=== PATIENT | male | born 1945 ===

== ENCOUNTER 2024-08-28 07:21 | Emergency (ER) | payer MEDICARE, SELFPAY ==
--- OUTSIDE RECORDS SUMMARY | 2024-08-28 07:23 | XMS_ITS | Clinical Summary ---
Author Organization [employer] [facility] [employer] Address [place], [place] [address] Care Team Providers Care Aluminum Container Tester Name Role Phone Amy Ding Primary Care Provider [phone] Allergies No known active allergies Medications gabapentin (NEURONTIN) 300 mg capsuleIndication s:DDD (degenerative disc disease), cervical,Cervical radiculopathy,For aminal stenosis of cervical region Take 1 Capsule (300 mg) by mouth at bedtime. 90 Capsule 3 024 Active tiZANidine (ZANAFLEX) 4 mg tabletIndications :Cervical myofascial pain syndrome Take 0.5-1 Tablets (2-4 mg) by mouth every 8 hours if needed for Muscle Spasm. 36 Tablet 3 024 Active amLODIPine (NORVASC) 5 mg tabletIndications :HTN (hypertension) Take 1 Tablet (5 mg) by mouth once daily. 90 Tablet 3 025 Active atorvastatin (LIPITOR) 20 mg tabletIndications :Mixed hyperlipidemia Take 1 Tablet (20 mg) by mouth at bedtime. 90 Tablet 3 025 Active hydroCHLOROthiazi de 25 mg tabletIndications :HTN (hypertension) Take 1 Tablet (25 mg) by mouth once daily. 90 Tablet 3 025 Active losartan (COZAAR) 100 mg tabletIndications :HTN (hypertension) Take 1 Tablet (100 mg) by mouth once daily. 90 Tablet 3 025 Active carbamide peroxide (DEBROX) 6.5 % otic solutionIndicatio ns:Impacted cerumen of right ear Place 5 Drops into right ear two times daily. 15 mL 1 025 Active ammonium lactate 12 % creamIndications: Cracked skin on feet APPLY TOPICALLY TO AFFECTED AREA(S) NEEDED FOR DRY SKIN. 385 g 2 025 Active carbamide peroxide (DEBROX) 6.5 % otic solutionIndicatio ns:Impacted cerumen of right ear Place 5 Drops into right ear two times daily. 15 mL 023 2024 Discontinued(R eorder (E-cancel not sent)) atorvastatin (LIPITOR) 20 mg tabletIndications :Hyperlipidemia, unspecified hyperlipidemia type TAKE ONE TABLET BY MOUTH AT BEDTIME . 90 Tablet 3 024 2024 Discontinued amLODIPine (NORVASC) 5 mg tabletIndications :HTN (hypertension) Take 1 Tablet (5 mg) by mouth once daily. 90 Tablet 3 024 2024 Discontinued(R eorder (E-cancel not sent)) hydroCHLOROthiazi de (HCTZ) 25 mg tabletIndications :HTN (hypertension) Take 1 Tablet (25 mg) by mouth once daily. 90 Tablet 3 024 2024 Discontinued(R eorder (E-cancel not sent)) losartan (COZAAR) 100 mg tabletIndications :HTN (hypertension) Take 1 Tablet (100 mg) by mouth once daily. 90 Tablet 3 024 2024 Discontinued(R eorder (E-cancel not sent)) polyethylene glycol-electrolyt e (GOLYTELY) 236-22.74-6.74 -5.86 gram suspensionIndicat ions:Adenomatous polyp of colon, unspecified part of colon Drink 2 liters the day before colonoscopy and 2 liters 6 hours before colonoscopy appointment 4000 mL 024 2024 Discontinued(* Med complete/Regim en complete/Level of care change) ammonium lactate 12 % creamIndications: Cracked skin on feet APPLY TOPICALLY TO AFFECTED AREA(S) NEEDED FOR DRY SKIN 385 g 2 024 2024 Discontinued(R eorder (E-cancel not sent)) tiZANidine (ZANAFLEX) 4 mg tabletIndications :Cervical myofascial pain syndrome Take 0.5-1 Tablets (2-4 mg) by mouth every 8 hours if needed for Muscle Spasm. 24 Tablet 1 024 2023 Discontinued(R eorder (E-cancel not sent)) atorvastatin (LIPITOR) 20 mg tabletIndications :Hyperlipidemia, unspecified hyperlipidemia type TAKE ONE TABLET BY MOUTH NIGHTLY AT BEDTIME 90 Tablet 1 025 2024 Discontinued(R eorder (E-cancel not sent)) Active Problems Problem Noted Date Diagnosed Date Mixed hyperlipidemia 08/26/2024 DDD (degenerative disc disease), cervical 2024 Mild cognitive impairment 08/26/2024 Sensorineural hearing loss, bilateral 01/02/2020 Adenomatous colon polyp 01/12/2018 Overview (05/16/2024): Colonoscopy 12/2017 polyps, repeat in 3 years Colonoscopy 02/2021 multiple TA, repeat in 3 years Colonoscopy 04/2024 5-TA, repeat in 3 years H/O: upper GI bleed 05/08/2017 Overview (05/08/2017): [place] due to aspirin use - 02/2014 HTN (hypertension) 04/21/2017 Lumbar disc herniation 04/21/2017 Overview (04/21/2017): L4-5. MRI 04/05/17. Resolved Problems Problem Noted Date Diagnosed Date Resolved Date PMR (polymyalgia rheumatica) 11/25/2022 08/18/2023 Overview (11/25/2022): August 2022 Encounters Date Type Department Care Team Description 08/26/2024 8:15 AM NOVELTY CHAIN MAKER Office Visit [facility] [address] [place] [address] Amy Ding PA Medicare ANNUAL (subsequent) Visit 08/26/2024 Travel 2024 11:00 AM NOVELTY CHAIN MAKER Procedure Only [facility] [address] [facility] [place] [address] Ovi Gupta L Ac Acupuncture 2024 Travel 08/10/2024 Refill [facility] [address] [place] [address] Amy Ding PA Refill Request (Atorvastatin) 07/30/2024 11:00 AM NOVELTY CHAIN MAKER Procedure Only [facility] [address] [place] [address] Ovi Gupta L Ac Acupuncture 07/30/2024 Travel 07/30/2024 Telephone [facility] [place] [place] [address] Osmin Contreras MD OTHER 07/09/2024 11:00 AM NOVELTY CHAIN MAKER Procedure Only [facility] [place] [address] Ovi Gupta L Ac Acupuncture 07/09/2024 Travel 07/04/2024 2:20 PM NOVELTY CHAIN MAKER Office Visit [facility] [place] [facility] [place] [address] Osmin Contreras MD Musculoskeletal Problem (Follow up neck, shoulders and low back pain ) 07/04/2024 Travel 06/18/2024 8:30 AM NOVELTY CHAIN MAKER Procedure Only [facility] [place] [address] Ovi Gupta L Ac Acupuncture 06/18/2024 Travel 06/07/2024 Refill [facility] [facility] [place] [address] Amy Ding PA Refill Request (Ammonium Lactate) 05/29/2024 8:30 AM CDT Procedure Only [facility] [facility] [place] [address] Ovi Gupta L Ac Acupuncture 05/29/2024 Travel from Last 3 Months Immunizations Name Administration Dates Next Due COVID-19 VACCINE SPIKEVAX (M ODERNA 50MCG/0.5ML) 12YO+ PFS 05/26/2023 COVID-19 vaccine (Moderna 100mcg/0.5mL) PF, MDV 01/25/2022,07/15/2021,10/07/2020,09/09 COVID-19 vaccine (Moderna 50 mcg/0.5mL) 12YO+ BIVALENT PF, MDV 06/14/2022 Influenza, High-dose Inactivated 04/29/2019 Influenza, High-dose Quadriv alent Inactivated 04/25/2023,04/24/2021,04/10/2020 Influenza, Inactivated AIIV4 (Age 65+ Years) Preserv Free 05/12/2022 Influenza, Inactivated IIV3 (Age 65+ Years) Preserv Free 04/29/2024,05/02/2018 Pneumococcal Poly,23-Valent (Pneumovax) 05/02/2018 Pneumococcal conj 13-Valent (Prevnar 13) 03/16/2017 RSV, Recombinant ADJ Reconst ituted (Arexvy 120MCG/0.5mL) 09/05/2023 Td (Age >=7 Years) 08/14/2011 Tdap 06/14/2022 Zoster (Shingrix-RZV, recombinant) 08/10/2018, Social History Tobacco Use Types Packs/Day Years Used Date Smoking Tobacco: Former Smokeless Tobacco: Never Tobacco Cessation:Counseling Given: Yes Alcohol Use Standard Drinks/Week Comments No 0 (1 standard drink = 0.6 oz pur e alcohol) PHQ-2 Answer Date Recorded PHQ-2 TOTAL SCORE 0 08/26/2024 Social Connections Answer Date Recorded Do you often feel lonely or isolated from those around you? 0 02/27/2024 Financial Resource Strain Answer Date R ecorded Difficulty of Paying Living Expenses 3 02/27/2024 Difficulty of Paying Living Expenses Not on file 02/27/2024 Food Insecurity Answer Date Recorded Do you worry your food will run out before you are able to buy more? 1 02/27/2024 Transportation Needs Answer Date Record ed Does lack of transportation keep you from medica l appointments? 1 02/27/2024 Does lack of transportation keep you from work, meetings or getting things that you need? 1 02/27/2024 Housing Stability Answer Date Recorded What is your housing situation today? 1 02/27/2024 Utilities Answer Date Recorded Do you have trouble paying f or utilities (for example, heat, electricity, water, phone)? 1 02/27/2024 Sex and Gender Information Value Date Recorded Sex Assigned at Not on file Legal Sex Male 2:10 PM CDT Gender Identity Not on file Sexual Orientation Not on file Obstetrics History Last Filed Vital Signs Vital Sign Reading Time Taken Comments Blood Pressure 132/76 08/26/2024 8:09 AM NOVELTY CHAIN MAKER Pulse 83 08/26/2024 8:09 AM NOVELTY CHAIN MAKER Temperature 36.4 C (97.6 F) 07/04/2024 2:23 PM NOVELTY CHAIN MAKER Respiratory Rate 20 11/09/2020 12:11 PM CDT Oxygen Saturation 98% 08/26/2024 8:09 AM NOVELTY CHAIN MAKER Inhaled Oxygen Concentration - - Weight 90.3 kg (199 lb) 08/26/2024 8:09 AM NOVELTY CHAIN MAKER Height 166.4 cm (5' 5.5) 08/26/2024 8:09 AM NOVELTY CHAIN MAKER Body Mass Index 32.61 08/26/2024 8:09 AM NOVELTY CHAIN MAKER Plan of Treatment Upcoming Encounters Date Type Department Care Team (Late st Contact Info) Description 09/10/2024 9:00 AM NOVELTY CHAIN MAKER Procedure Only [facility] [address] [place] [address] Ovi Gupta L Ac [address] [place] [address] 09/30/2024 9:20 AM NOVELTY CHAIN MAKER Office Visit [facility] [address] [place] [address] Osmin Contreras MD [address] [place] [address] 10/08/2024 9:00 AM NOVELTY CHAIN MAKER Procedure Only [facility] [address] [place] [address] Ovi Gupta L Ac [address] [place] [address] 10/29/2024 10:00 AM CDT Procedure Only [facility] [address] [place] [address] Ovi Gupta L [address] [place] [address] Scheduled Procedures Name Priority Associated Diagnoses Date/Ti me SURGICAL PROCEDURE (TYPE PROCEDURE DESCRIPTION BELOW) Adenomatous polyp of colon, unspecified part of colon Health Maintenance Due Date Last Done Comments BMI (ht and wt on same day) for age 18+ 08/26/2025 08/26/2024, 08/18/2023, 06/02/2022, Additional history exists Depression screening for age 12+ 08/26/2025 08/26/2024, 08/18/2023, 06/02/2022, Additional history exists Medicare Wellness for age 65+ 08/27/2025, 08/18/2023, 06/02/2022, Additional history exists Tetanus booster 06/14/2032 06/14/2022, 08/14/2011 Pneumococcal series for age 50+ Completed 8, 03/16/2017 Zoster (shingles) series for age 50+ Completed 08/10/2018, 05/08/2018 Hepatitis C screening for ag e 18-79 Completed 05/12/2020 Tdap Completed 06/14/2022 RSV vaccine for adults or Completed 09/05/2023 Influenza for age 65+ Completed 04/29/2024 , 04/25/2023, 05/12/2022, Additional history exists COVID-19 vaccine series Completed 05/22/20 24, 01/23/2024, 05/26/2023, Additional history exists Procedures Procedure Name Priority Date/Time Associated Diagnosis Comments PSA TOTAL Routine 08/26/2024 9:27 AM NOVELTY CHAIN MAKER Screening for prostate cancer BASIC METABOLIC PANEL Routine 08/26/2024 9:27 AM NOVELTY CHAIN MAKER HTN (hypertension) Screening for diabetes mellitus (DM) LIPID PANEL W REFLEX MEASURED LDL Routine 08/26/2024 9:27 AM NOVELTY CHAIN MAKER Mixed hyperlipidemia ANTI HCV Routine 05/12/2020 3:37 PM CDT Need for hepatitis C screening test from Last 3 Months or Most Recently Relevant to Health Maintenance Results * LIPID PANEL W REFLEX MEASURED LDL (08/26/2024 9:27 AM NOVELTY CHAIN MAKER) CHOLESTEROL, TOTAL 144 <200 mg/dL [facility] HDL CHOLESTEROL 47 > OR = 40 mg/dL [facility] TRIGLYCERIDES 86 <150 mg/dL [facility] LDL-CHOLESTEROL 80 mg/dL (calc) [facility] Comment: Reference range: <100 Desirable range <100 mg/dL for primary prevention; <70 mg/dL for patients with CHD or diabetic patients with > or = 2 CHD risk factors. LDL-C is now calculated using the Vernell calculation, which is a validated novel method providing better accuracy than the Friedewald equation in the estimation of LDL-C. Honorio BRISENO et al. CHICHO. 2013;310(19): 6166-7444 (http://education.GINKGOTREE/faq/BIS203) CHOL/HDLC RATIO 3.1 <5.0 (calc) [facility] NON HDL CHOLESTEROL 97 <130 mg/dL (calc) [facility] Comment: For patients with diabetes plus 1 major ASCVD risk factor, treating to a non-HDL-C goal of <100 mg/dL (LDL-C of <70 mg/dL) is considered a therapeutic option. Blood BLOOD SPECIMEN / Unknown 08/26/2024 9:27 AM NOVELTY CHAIN MAKER 08/26/2024 9:31 AM NOVELTY CHAIN MAKER Amy MIGUEL CHEMISTRY Final Res ult [facility] [address] [place] [address], [facility] [address] [place] [address] * PSA TOTAL (DIAG OR SCREEN) [92156.0] (08/26/2024 9:27 AM NOVELTY CHAIN MAKER) PSA, TOTAL 0.26 < OR = 4.00 ng/mL [facility] Comment: The total PSA value from this assay system is standardized against the WHO standard. The test result will be approximately 20% lower when compared to the equimolar-standardized total PSA (Roya Zarina). Comparison of serial PSA results should be interpreted with this fact in mind. This test was performed using the Siemens chemiluminescent method. Values obtained from different assay methods cannot be used interchangeably. PSA levels, regardless of value, should not be interpreted as absolute evidence of the presence or absence of disease. Blood BLOOD SPECIMEN / Unknown 08/26/2024 9:27 AM NOVELTY CHAIN MAKER 08/26/2024 9:31 AM NOVELTY CHAIN MAKER us Amy MIGUEL CHEMISTRY Final Res ult [facility] [address] [place] [address], [facility] [address] [place] [address] * (ABNORMAL) BASIC METABOLIC PANEL (08/26/2024 9:27 AM NOVELTY CHAIN MAKER) GLUCOSE 103(H) 65 - 99 mg/dL [facility] Comment: Fasting reference interval For someone without known diabetes, a glucose value between 100 and 125 mg/dL is consistent with prediabetes and should be confirmed with a follow-up test. UREA NITROGEN (BUN) 16 7 - 25 mg/dL [facility] CREATININE 0.85 0.70 - 1.28 mg/dL [facility] EGFR 89 > OR = 60 mL/min/1. 73m2 [facility] BUN/CREATININE RATIO SEE NOTE: 6 - 22 (calc) [facility] Comment: Not Reported: BUN and Creatinine are within reference range. SODIUM 136 135 - 146 mmol/L [facility] POTASSIUM 4.4 3.5 - 5.3 mmol/L [facility] CHLORIDE 99 98 - 110 mmol/L [facility] CARBON DIOXIDE 29 20 - 32 mmol/L [facility] ELECTROLYTE BALANCE 8 7 - 17 mmol/L (calc) [facility] CALCIUM 10.1 8.6 - 10.3 mg/dL [facility] Blood BLOOD SPECIMEN / Unknown 08/26/2024 9:27 AM NOVELTY CHAIN MAKER 08/26/2024 9:31 AM NOVELTY CHAIN MAKER Amy Ding PA CHEMISTRY Final Res ult Performing Organization Address City/[facility]/ZIP Co de Phone Number [facility] [address] [place] [address], [facility] [address] [place] [address] * ANTI HCV (05/12/2020 3:37 PM CDT) Pathologist [facility] HEPATITIS C ANTIBODY Non-React glynn Non-React glynn 05/12/2020 9:50 PM CDT [facility] Comment:Antibodies to HCV no t detected; does not exclude the possibility of exposure to HCV. Blood BLOOD SPECIMEN / Unknown [facility] / Unknown 05/12/2020 3:37 PM CDT 05/12/2020 3:37 PM CDT Adriana MIGUEL SEND OUTS Final Resu lt Performing Organization Address City/[facility]/ZIP Co de Phone Number [facility] [address] [place] [address], from Last 3 Months or Most Recently Relevant to Health Maintenance Insurance MEDICARE PB ONLY [facility] PB ONLY Member Subscriber Plan / Payer ( fective 2016-Present) Name:Sanchez Sanchez Relation to Subscriber:Self Name:Sanchez Sanchez Payer ID:Not on file Group ID:NONE Type:Not on file Address: [facility] [id number] [place] [id number] MEDICARE PART B HB ONLY [facility] HB ONLY Care Teams Aluminum Container Tester Relationship Specialty Start Date End Date Amy Ding PA [address] [place] [address] PCP - General Physician Direct Support Professional 01/25/23
[2024-08-28 07:29] VITALS: BP 126/75; PULSE 86; RESP 16; TEMP 35.9; O2SAT 95; BMI 31.2
--- NOTE | 2024-08-28 07:55 | ED_ITS ---
HPI - General Adult General Chief complaint: Fall/Minor Trauma Stated complaint: fell and hit head Time Seen by Provider: 08/28/24 07:40 Source: patient Mode of arrival: ambulatory Limitations: no limitations History of Present Illness HPI narrative: 79-year-old male presents the emergency department for evaluation of laceration to the right restorationist area. Patient reports that he has an adjustable type bed. He had dropped the remote in the night and it was difficult for him to roll over because of this. While attempting to roll over, he fell towards the side of the bed, striking his head on the corner of the nightstand. There was no loss of consciousness, fall or other abnormality. He applied pressure and the bleeding seemed to have slowed and he was able to go back to bed for several hours. When he woke this morning, he noticed that it kept wanting to do some blood, causing him to come to the emergency department. There is no neurological change, no headache, no difficulty ambulating. No confusion or vision change. He has not taken any medication to help with symptoms. Reports that his past medical history is negative for significant neurological disease. He is hard of hearing and uses hearing aids and does read lips for additional confirmation. ROS is otherwise negative times 12 systems besides the laceration. Related Data Allergies Allergy/AdvReac Type Severity Reaction Status Date / Time No Known Drug Allergies Allergy Verified 08/28/24 07:28 [facility] Social History Smoking Status: Never smoker Do you use any of these nicotine containing products: None Second hand tobacco smoke exposure: No How often do you have a drink containing alcohol: never How often do you have six or more drinks on one occasion: Never AUDIT-C Alcohol total score: 0 Non-prescribed substance use: denies use service: No Exam Const: Vital Signs, click to edit/add: Vital Signs - 24 hr 08/28/24 07:29 Temperature 96.7 F L Pulse Rate [Pulse Oximeter] 86 Respiratory Rate 16 Blood Pressure [Ri ght Upper Arm] 126/75 Pulse Oximetry 95 Oxygen Delivery Me thod Room Air Documenting provider has reviewed patient's vital signs: yes Common normals: no apparent distress General appearance: cooperative and comfortable HENMT: Other: 4 mm stellate shaped puncture type wound to right restorationist consistent with reported mechanism. Slight oozing noted. Seems to affect the dermis and epidermis only, no underlying structures, no heavy bleeding or signs of blood vessel damage. No abnormal facial movements, he can close the eyes tightly with no difficulty. Pupils are equal round reactive to light. Normal opening and closing of the jaw. Ears and remainder of scalp appear normal. Hearing aids not removed. Eye: Common normals: PERRL and EOMs intact bilaterally General eye: normal appearance of both eyes Pupil: PERRL Neck & C-Spine: Common normals: full ROM General: normal visual inspection Resp: Common normals: normal respiratory effort Effort & inspection: able to speak in complete sentences Extremity: Common normals: normal to inspection Neuro: Common normals: moves all extremities Speech: speech normal Motor exam: no movement abnormalities noted Psych: Common normals: speech normal Attitude: engaged Activity/motor behavior: appropriate eye contact Speech: normal speech Attention/concentration: attention grossly intact Memory/cognition: memory grossly intact Insight: insight good Judgement: judgment good Skin: Common normals: no rashes or lesions noted General skin exam: no rashes or lesions noted Course Course ED Course: 79-year-old male with small puncture type laceration to the right restorationist area. Slight bleeding noted. Counseled patient that unfortunately scalp like to bleed a lot, this is just the nature of their blood flow. I do not think that a stitches necessary but I do think he could benefit from some Dermabond and Steri-Strips. The or earlier skin of the face and scalp does make it a little more difficult for a Steri-Strips to adhere properly and Dermabond tends to help with this. Rationale discussed. Wound is cleansed with hand soap, tap water and gauze sponge. No signs of foreign body. Wound edges clearly seen. Dried with dry 4 x 4 and then Dermabond and a 1 cm strip applied with good anatomic closure and hemostasis. Well tolerated. Instructed on wound care. Please let drive for the next few hours, may shower and wash hair and face with this in place. Okay to use Tylenol and ibuprofen for mild headache. No signs of serious head injury. Alarm symptoms reviewed that would warrant ED presentation. She ripped should fall off on its own in 5-10 days. No need for follow-up unless signs of complications. Written instructions provided Vital Signs Vital signs: Initial Vital Signs Temperature 96.7 F L 01/15/25 07:29 Temperature Source Temporal Artery Scan 08/28/24 07:29 Pulse Rate 86 08/28/24 07:29 Pulse Rhythm Regular 08/28/24 07:29 Respiratory Rate 16 08/28/24 07:29 Blood Pressure 126/75 08/28/24 07:29 Blood Pressure Mean 92 08/28/24 07:29 Blood Pressure Position Semi-Fowlers 08/28/24 07:29 Pulse Oximetry 95 08/28/24 07:29 Oxygen Delivery Method Room Air 08/28/24 07:29 Vital Signs Temperature 96.7 F L 08/28/24 07:29 Pulse Rate 86 08/28/24 07:29 Respiratory Rate 16 08/28/24 07:29 Blood Pressure 126/75 08/28/24 07:29 Pulse Oximetry 95 08/28/24 07:29 Oxygen Delivery Method Room Air 08/28/24 07:29 Temperature 96.7 F L 08/28/24 07:29 Pulse Rate 86 08/28/24 07:29 Respiratory Rate 16 08/28/24 07:29 Blood Pressure 126/75 08/28/24 07:29 Pulse Oximetry 95 08/28/24 07:29 Oxygen Delivery Method Room Air 08/28/24 07:29 Discharge Plan Discharge Clinical Impression: Laceration of scalp Patient Disposition: Home, Self-Care Condition: Improved Instructions: Steristrips (ED) Additional Instructions: As we discussed, scalp lacerations can bleed a lot. Yours was more of a puncture wound, fitting with your description that you hit your head on the corner of the nightstand. Thankfully, we were able to pull the skin together with a combination of glue and Steri-Strips. These will adhere to your skin for a few days to help keep the wound closed and then gradually for fall off over the next 5-7 days. It is okay to shower and wash your hair as normal after 12 hours. Please do not aggressively scrubbed over the strip for at least the next 3 days, just gently let water fall over the area as briefly as possible. There are no signs of major head injury. It is okay for you to resume all typical activities. Mild headache may be common. It is safe to use Tylenol 1000 mg every 6 hours and or ibuprofen 600 mg every 6 hours for headache or mild discomfort. Return to the emergency department if there is persistent vomiting, loss of consciousness, seizures or other dangerous signs of complication. Activity Level: No Restrictions Discharge Diet: Regular Follow Up/Referrals: Adriana Mims PA [Primary Care Provider] - Stand Alone Forms: MyHealth Info Instructions
--- OUTSIDE RECORDS SUMMARY | 2024-08-28 08:15 | XMS_ITS | Clinical Summary ---
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 MRI 04/05/17. Resolved Problems Problem Noted Date Diagnosed Date Resolved Date PMR (polymyalgia rheumatica) 11/25/2022 08/18/2023 Overview (11/25/2022): August 2022 Encounters Date Type Department Care Team Description 08/26/2024 8:15 AM DAY CARE HOME PROVIDER Office Visit [facility] [address] [facility] [address] Amy Ding PA Medicare ANNUAL (subsequent) Visit 08/26/2024 Travel 2024 11:00 AM DAY CARE HOME PROVIDER Procedure Only [facility] [address] [facility] [place] [address] Ovi Gupta L Ac Acupuncture 2024 Travel 08/10/2024 Refill [facility] [address] [place] [address] Amy Ding PA Refill Request (Atorvastatin) 07/30/2024 11:00 AM DAY CARE HOME PROVIDER Procedure Only [facility] [address] [place] [address] Ovi Gupta L Ac Acupuncture 07/30/2024 Travel 07/30/2024 Telephone [facility] [place] [place] [address] Osmin Contreras MD OTHER 07/09/2024 11:00 AM DAY CARE HOME PROVIDER Procedure Only [facility] [address] [address] Ovi Gupta L Ac Acupuncture 07/09/2024 Travel 07/04/2024 2:20 PM DAY CARE HOME PROVIDER Office Visit [facility] [address] [facility] [place] [address] Osmin Contreras MD Musculoskeletal Problem (Follow up neck, shoulders and low back pain ) 07/04/2024 Travel 06/18/2024 8:30 AM DAY CARE HOME PROVIDER Procedure Only [facility] [place] [address] Ovi Gupta L Ac Acupuncture 06/18/2024 Travel 06/07/2024 Refill [facility] [address] [facility] [place] [address] Amy Ding PA Refill Request (Ammonium Lactate) 05/29/2024 8:30 AM CDT Procedure Only [facility] [address] [facility] [place] [address] Ovi Gupta L Ac Acupuncture 05/29/2024 Travel [...] Comments Blood Pressure 132/76 08/26/2024 8:09 AM DAY CARE HOME PROVIDER Pulse 83 08/26/2024 8:09 AM DAY CARE HOME PROVIDER Temperature 36.4 C (97.6 F) 07/04/2024 2:23 PM DAY CARE HOME PROVIDER Respiratory Rate 20 11/09/2020 12:11 PM CDT Oxygen Saturation 98% 08/26/2024 8:09 AM DAY CARE HOME PROVIDER Inhaled Oxygen Concentration - - Weight 90.3 kg (199 lb) 08/26/2024 8:09 AM DAY CARE HOME PROVIDER Height 166.4 cm (5' 5.5) 08/26/2024 8:09 AM DAY CARE HOME PROVIDER Body Mass Index 32.61 08/26/2024 8:09 AM DAY CARE HOME PROVIDER Plan of Treatment Upcoming Encounters Date Type Department Care Team (Late st Contact Info) Description 09/10/2024 9:00 AM DAY CARE HOME PROVIDER Procedure Only [facility] [address] [place] [address] Ovi Gupta L Ac [address] [place] [address] 09/30/2024 9:20 AM DAY CARE HOME PROVIDER Office Visit [facility] [address] [place] [address] Osmin Contreras MD [address] [place] [address] 10/08/2024 9:00 AM DAY CARE HOME PROVIDER Procedure Only [facility] [address] [place] [address] Ovi Gupta L Ac [address] [place] [address] 10/29/2024 10:00 AM CDT Procedure Only [facility] [address] [place] [address] Ovi Gupta L [address] [place] [address] Scheduled Procedures Name Priority Associated Diagnoses Date/Ti [...] Comments PSA TOTAL Routine 08/26/2024 9:27 AM DAY CARE HOME PROVIDER Screening for prostate cancer BASIC METABOLIC PANEL Routine 08/26/2024 9:27 AM DAY CARE HOME PROVIDER HTN (hypertension) Screening for diabetes mellitus (DM) LIPID PANEL W REFLEX MEASURED LDL Routine 08/26/2024 9:27 AM DAY CARE HOME PROVIDER Mixed hyperlipidemia ANTI HCV Routine 05/12/2020 3:37 PM CDT Need for hepatitis C screening test from Last 3 Months or Most Recently Relevant to Health Maintenance Results * LIPID PANEL W REFLEX MEASURED LDL (08/26/2024 9:27 AM DAY CARE HOME PROVIDER) CHOLESTEROL, TOTAL 144 <200 mg/dL [facility] HDL CHOLESTEROL 47 > OR = 40 mg/dL [facility] TRIGLYCERIDES 86 <150 mg/dL [facility] LDL-CHOLESTEROL 80 mg/dL (calc) [facility] Comment: Reference range: <100 Desirable range <100 mg/dL for primary prevention; <70 mg/dL for patients with CHD or diabetic patients with > or = 2 CHD risk factors. LDL-C is now calculated using the Vernell calculation, which is a validated novel method providing better accuracy than the Friedewald equation in the estimation of LDL-C. Honorio BRISENO et al. CHICHO. 2013;310(19): 8125-8358 (http://education.Boxer/faq/IXL818) CHOL/HDLC RATIO 3.1 <5.0 (calc) [facility] NON HDL CHOLESTEROL 97 <130 mg/dL (calc) [facility] Comment: For patients with diabetes plus 1 major ASCVD risk factor, treating to a non-HDL-C goal of <100 mg/dL (LDL-C of <70 mg/dL) is considered a therapeutic option. Blood BLOOD SPECIMEN / Unknown 08/26/2024 9:27 AM DAY CARE HOME PROVIDER 08/26/2024 9:31 AM DAY CARE HOME PROVIDER Amy MIGUEL CHEMISTRY Final Res ult [facility] [address] [place] [address], [facility] [address] [place] [address] * PSA TOTAL (DIAG OR SCREEN) [60849.0] (08/26/2024 9:27 AM DAY CARE HOME PROVIDER) PSA, TOTAL 0.26 < OR = 4.00 ng/mL [facility] Comment: The total PSA value [...] BLOOD SPECIMEN / Unknown 08/26/2024 9:27 AM DAY CARE HOME PROVIDER 08/26/2024 9:31 AM DAY CARE HOME PROVIDER us Amy MIGUEL CHEMISTRY Final Res ult [facility] [address] [place] [address], [facility] [address] [place] [address] * (ABNORMAL) BASIC METABOLIC PANEL (08/26/2024 9:27 AM DAY CARE HOME PROVIDER) GLUCOSE 103(H) 65 - 99 mg/dL [facility] Comment: Fasting reference interval For someone without known diabetes, a glucose value between 100 and 125 mg/dL is consistent with prediabetes and should be confirmed with a follow-up test. UREA NITROGEN (BUN) 16 7 - 25 mg/dL [facility] CREATININE 0.85 0.70 - 1.28 mg/dL [facility] EGFR 89 > OR = 60 mL/min/1. 73m2 [facility] BUN/CREATININE RATIO SEE NOTE: 6 - 22 (calc) [facility] Comment: Not Reported: BUN and Creatinine are within reference range. SODIUM 136 135 - 146 mmol/L [facility] POTASSIUM 4.4 3.5 - 5.3 mmol/L [facility] CHLORIDE 99 98 - 110 mmol/L [facility] CARBON DIOXIDE 29 20 - 32 mmol/L [facility] ELECTROLYTE BALANCE 8 7 - 17 mmol/L (calc) [facility] CALCIUM 10.1 8.6 - 10.3 mg/dL [facility] Blood BLOOD SPECIMEN / Unknown 08/26/2024 9:27 AM DAY CARE HOME PROVIDER 08/26/2024 9:31 AM DAY CARE HOME PROVIDER Amy Ding PA CHEMISTRY Final Res ult Performing Organization Address City/[facility]/ZIP Co de Phone Number [facility] [address] [place] [address], [facility] [address] [place] [address] * ANTI HCV (05/12/2020 3:37 PM CDT) Pathologist [facility] HEPATITIS C ANTIBODY Non-React glynn Non-React glynn 05/12/2020 9:50 PM CDT [facility] Comment:Antibodies to HCV no t detected; does not exclude the possibility of exposure to HCV. Blood BLOOD SPECIMEN / Unknown [facility] / Unknown 05/12/2020 3:37 PM CDT 05/12/2020 3:37 PM CDT Adriana MIGUEL SEND OUTS Final Resu lt Performing Organization Address City/[facility]/ZIP Co de Phone Number [facility] [address] [place] [address], from Last 3 Months or Most Recently Relevant to Health Maintenance Insurance MEDICARE PB ONLY [facility] PB ONLY Member Subscriber Plan / Payer ( fective 2016-Present) Name:Sanchez Sanchez Relation to Subscriber:Self Name:Sanchez Sanchez Payer ID:Not on file Group ID:NONE Type:Not on file Address: [facility] [id number] [place] [id number] MEDICARE PART B HB ONLY [facility] HB ONLY Care Teams Deputy Felony Clerk Relationship Specialty Start Date End Date Amy Ding PA [address] [place] [address] PCP - General Physician Front Clerk 01/25/23
== END 2024-08-28 08:20 | disposition home or self-care (01) ==
LOC: ED 08:13
PROVIDERS: Emergency Provider Family Medicine; PCP Student in an Organized Health Care Education/Training Program
DX: S01.01XA Laceration without foreign body of scalp, initial encounter (principal); W22.8XXA Striking against or struck by other objects, initial encounter
CPT/HCPCS: 12001; 99282; 99283